=== PATIENT | male | born 1955 | race Hispanic/Latino ===

== ENCOUNTER 2017-04-09 10:30 | Observation (INO) | payer OTHER ==
[~2017-04-09] VITALS: Ht 177.8 cm; Wt 101.8 kg
[2017-07-14 11:50] LABS: BASOPHILS % (AUTO) 1.1 % (0.0-5.0); EOSINOPHILS % (AUTO) 2.4 % (0.0-8.0); LYMPHOCYTES % (AUTO) 32.7 % (21.0-51.0); MEAN CORPUSCULAR HEMOGLOBIN 28.7 pg (27.0-33.0); MEAN CORPUSCULAR HGB CONC 33.6 g/dL (32.0-36.0); MEAN CORPUSCULAR VOLUME 85.4 fL (79-99); MONOCYTES % (AUTO) 8.8 % (3.0-13.0); PLATELET COUNT (AUTO) 272 K/uL (130-400); RED BLOOD CELL COUNT(AUTO) 5.38 MIL/uL (4.50-6.20); RED CELL DISTRIBUTION WIDTH 13.7 % (11.0-15.5); WHITE BLOOD COUNT (AUTO) 6.8 K/uL (4.8-10.8)
[2017-07-14 11:54] LABS: POTASSIUM 4.1 mmol/L (3.5-5.1)
[2017-07-14 11:57] VITALS: BP 147/91
[2017-07-14] MEDS ORDERED: LACT1TAB22 PO (12:28)
[2017-07-14] MEDS ORDERED: LOVA10TA2 PO (12:28)
[2017-07-14] MEDS ORDERED: LEVO175T4 PO (12:28)
[2017-07-14] MEDS ORDERED: [UNRECOGNIZED DRUG - OTHER] PO (12:28)
[2017-07-17] VITALS (26 sets, daily range): BP systolic 95–141; BP diastolic 67–95
[2017-07-17] MEDS ORDERED: LACTATED RINGERS 1000ML 1,000 ML IV ONE (06:23)
[2017-07-17] MEDS: CEFAZOLIN SODIUM 1 GM VIAL IVP SCH ×4 (06:30→16:02)
[2017-07-17] MEDS ORDERED: TERB250T4 PO (06:46)
[2017-07-17] MEDS ORDERED: BUPIVACAINE/PF 0.25% 30ML VIAL IJ ONE (06:48)
[2017-07-17] MEDS ORDERED: THROMBIN-JMI 20000 UNIT KIT TP ONE (06:49)
[2017-07-17] MEDS ORDERED: DURAMORPH PF1 MG/ML 10ML AMP IV ONE (06:49)
[2017-07-17] MEDS ORDERED: BACITRACIN 50,000 UNIT VIAL ONE (06:49)
[2017-07-17] MEDS ORDERED: EPINEPHRINE 1 MG/ML AMPULE ONE (06:49)
[2017-07-17] MEDS ORDERED: DEXAMETHASONE SOD PHOSPHATE 10MG/ML 1ML VIAL ONE ×2 (06:59→10:02)
[2017-07-17] MEDS ORDERED: GLYCOPYRROLATE 0.2 MG/ML 5 ML VIAL ONE (06:59)
[2017-07-17] MEDS ORDERED: ONDANSETRON HCL 4 MG/2 ML VIAL ONE ×2 (06:59→10:03)
[2017-07-17] MEDS ORDERED: SUCCINYLCHOLINE 200MG/10ML SYR ONE ×2 (06:59→08:24)
[2017-07-17] MEDS ORDERED: LIDOCAINE PF 2% 5ML ABBOJECT ONE (06:59)
[2017-07-17] MEDS ORDERED: PROPOFOL 10 MG/ML 20ML VIAL IV ONE (07:00)
[2017-07-17] MEDS ORDERED: MIDAZOLAM HCL 1 MG/ML 2ML VIAL ONE (07:00)
[2017-07-17] MEDS ORDERED: FENTANYL CITRATE PF 50 MCG/1 ML 2ML VIAL ONE ×2 (07:01→07:58)
[2017-07-17] MEDS ORDERED: ARTIFICIAL TEARS 3.5 GM OINTMENT ONE (07:27)
[2017-07-17] MEDS ORDERED: ROCURONIUM BROMIDE 10MG/1ML 5ML VL ONE ×2 (08:24)
[2017-07-17] MEDS ORDERED: LIDOCAINE HCL 2% JELLY 5 ML ONE (08:24)
[2017-07-17] MEDS ORDERED: LIDOCAINE HCL 4% LTA SOL 4 ML VIAL ONE (08:25)
[2017-07-17] MEDS ORDERED: PHENYLEPHRINE HCL 10 MG/ML 1ML VIAL IV ONE (08:25)
[2017-07-17] MEDS: LACTATED RINGERS 1000ML 1,000 ML IV SCH ×2 (10:17→23:37)
[2017-07-17] MEDS ORDERED: SODIUM CHLORIDE 0.9% 10 ML VIAL IVP PRN (10:30)
[2017-07-17] MEDS ORDERED: MORPHINE SULFATE 2 MG/ML 1ML SYG IVP PRN (10:30)
[2017-07-17] MEDS ORDERED: PROMETHAZINE HCL 25 MG/ML 1ML AMPULE IM PRN (10:30)
[2017-07-17] MEDS: DEXAMETHASONE SOD PHOSPHATE 4 MG/ML 1ML VIAL IVP SCH ×3 (10:30→21:20)
[2017-07-17] MEDS ORDERED: CEFAZOLIN 2GM / 50 ML 50 ML IV SCH (10:30)
[2017-07-17] MEDS ORDERED: MEPERIDINE-PF 50 MG/ML SYG ONE (11:07)
[2017-07-17] MEDS ORDERED: SODIUM CHLORIDE 0.9% 1000ML 1,000 ML IV ONE (12:39)
[2017-07-17] MEDS ORDERED: TERBINAFINE HCL 250 MG PO SCH (21:00)
[2017-07-17] MEDS ORDERED: ATORVASTATIN CALCIUM 10 MG TABLET PO SCH (21:00)
[2017-07-17] MEDS: HYDROCODONE/ACETAMINOPHEN 5/325 MG TAB PO PRN (21:27)
[2017-07-18 00:07] VITALS: BP 123/74
[2017-07-18] MEDS: HYDROCODONE/ACETAMINOPHEN 5/325 MG TAB PO PRN (03:14)
[2017-07-18 04:00] VITALS: BP 136/84
[2017-07-18] MEDS: DEXAMETHASONE SOD PHOSPHATE 4 MG/ML 1ML VIAL IVP SCH (05:01)
[2017-07-18] MEDS ORDERED: LEVOTHYROXINE 100 MCG TABLET PO SCH (06:30)
[2017-07-18] MEDS ORDERED: LEVOTHYROXINE 75 MCG TABLET PO SCH (06:30)
[2017-07-18 07:45] VITALS: BP 136/74
[2017-07-18] MEDS ORDERED: LACTOBACILLUS RHAMNOSUS GG 1 EACH CAP.SPRINK PO SCH (08:00)
[2017-07-18 08:15] VITALS: BP 117/68
[2017-07-18] MEDS ORDERED: [UNRECOGNIZED DRUG - OTHER] PO SCH (09:00)
== END 2017-07-18 10:55 | disposition home or self-care (01) ==
LOC: EDSTATUS 10:30 → DAHIP 07-17 05:52 → 4BH 07-17 12:14
PROVIDERS: ADMIT Neurological Surgery; ATTEND Neurological Surgery
DX: M48.061 Spinal stenosis, lumbar region without neurogenic claudication (principal); I10 Essential (primary) hypertension; E78.5 Hyperlipidemia, unspecified; E03.9 Hypothyroidism, unspecified; Z79.899 Other long term (current) drug therapy
CPT/HCPCS: 36415; 63047; 63048; 72020; 80051; 85025; 96374; 96375; 96376 ×2; A4218; A4344; A4510; A4600; A5113; G0378 ×30; J0171; J0330 ×2; J0690 ×2; J1100 ×5; J2001; J2175; J2250; J2274; J2370; J2405 ×2; J2704; J3010 ×2; J3490 ×4; J7030; J7120 ×2

== ENCOUNTER 2017-07-18 20:46 | Emergency (ER) | payer OTHER ==
[~2017-07-18 20:46] MED LIST: LACT1TAB22 PO; LEVO175T4 PO; LOVA10TA2 PO; TERB250T4 PO; [UNRECOGNIZED DRUG - OTHER] PO
[2017-07-18 22:17] LABS: BASOPHILS % (AUTO) 0.5 % (0.0-5.0); EOSINOPHILS % (AUTO) 0.1 % (0.0-8.0); LYMPHOCYTES % (AUTO) 16.8 % (21.0-51.0); MEAN CORPUSCULAR HEMOGLOBIN 28.8 pg (27.0-33.0); MEAN CORPUSCULAR VOLUME 84.7 fL (79-99); MONOCYTES % (AUTO) 10.5 % (3.0-13.0); NEUTROPHILS % (AUTO) 72.1 % (40.0-77.0); PLATELET COUNT (AUTO) 278 K/uL (130-400); RED BLOOD CELL COUNT(AUTO) 4.84 MIL/uL (4.50-6.20); RED CELL DISTRIBUTION WIDTH 13.4 % (11.0-15.5); WHITE BLOOD COUNT (AUTO) 16.4 K/uL (4.8-10.8)
== END 2017-07-18 22:59 | disposition home or self-care (01) ==
LOC: EDH 20:46
DX: T81.30XA Disruption of wound, unspecified, initial encounter (principal); E78.5 Hyperlipidemia, unspecified; E07.9 Disorder of thyroid, unspecified; Z98.890 Other specified postprocedural states
CPT/HCPCS: 36415; 85025

== ENCOUNTER → 2021-08-23 | Outpatient (CLI) | payer MEDICARE, OTHER ==
[~2021-08-23] MED LIST changes: +GADOTERATE MEGLUMINE 10 MMOL/20 ML VIAL IV ONE
== END | disposition home or self-care (01) ==
LOC: RAH 14:01
PROVIDERS: ATTEND Internal Medicine
DX: M47.27 Other spondylosis with radiculopathy, lumbosacral region (principal); M48.07 Spinal stenosis, lumbosacral region; M51.16 Intervertebral disc disorders with radiculopathy, lumbar region
CPT/HCPCS: 72158; A9575